=== PATIENT | female | born 1985 | race Caucasian/White ===

== ENCOUNTER → 2021-08-13 15:01 | Outpatient (CLI) | payer OTHER, SELFPAY ==
--- NOTE | ~2021-08-13 | US_ITS ---
EXAMINATION: US soft tissue UE RT EXAM DATE: 08/13/2021 15:20 INDICATION: Localized edema /swelling. TECHNIQUE: Multiple grayscale and Doppler images of the symptomatic right upper arm region were obtai sander (by a technologist who performed the scan) and subsequently reviewed. There is no prior study fo r comparison. FINDINGS: Scanning in the area of clinical concern demonstrates subcutaneous fat echogenicity, somewhat more fo pasquale region which could be an encapsulated or unencapsulated lipoma. The underlying musculature is unr emarkable. IMPRESSION: 1. Possible right upper arm lipoma. Reviewed, dictated and finalized at location B.
== END ==
PROVIDERS: PCP Physician Assistant Medical; Visit Provider Nurse Practitioner Women's Health
DX: R60.0 Localized edema (principal); M79.89 Other specified soft tissue disorders
CPT/HCPCS: 76882